=== PATIENT | male | born 1985 | race Two or more races ===

== ENCOUNTER 2017-01-31 14:46 | Emergency (ER) | payer SELFPAY ==
[~2017-01-31] VITALS: Ht 180.3 cm; Wt 90.7 kg
[2017-01-31 15:42] VITALS: BP 126/83
== END 2017-01-31 16:22 | disposition left against medical advice (07) ==
LOC: ER 14:46
DX: R51 Headache (principal); Z53.21 Procedure and treatment not carried out due to patient leaving prior to being seen by health care provider

== ENCOUNTER 2017-02-28 09:30 | Emergency (ER) | payer MEDICAID ==
[~2017-02-28] VITALS: Ht 180.3 cm; Wt 90.7 kg
[2017-02-28 09:44] VITALS: BP 125/80
== END 2017-02-28 11:06 | disposition home or self-care (01) ==
LOC: ER 09:30
DX: H66.92 Otitis media, unspecified, left ear (principal); J02.9 Acute pharyngitis, unspecified